=== PATIENT | female | born 1960 | race Caucasian/White ===

== ENCOUNTER 2019-08-27 13:15 | Observation (INO) | payer BC ==
[2019-08-27] MEDS ORDERED: LORAZEPAM INJ 2 MG/1 ML VIAL IV ONE ×2 (13:22→15:15)
[2019-08-27] MEDS ORDERED: NORMAL SALINE 1000 ML 1,000 ML IV ONE ×3 (13:24→13:25)
[2019-08-27 13:54] LABS: ABSOLUTE BASOPHILS # (AUTO) 0.1 10^3/uL (0.0-0.2); ABSOLUTE EOSINOPHILS # (AUTO) 0.1 10^3/uL (0.0-0.6); ABSOLUTE LYMPHOCYTES (AUTO) 1.5 10^3/uL (0.5-4.7); ABSOLUTE MONOCYTES (AUTO) 0.2 10^3/uL (0.1-1.4); ABSOLUTE NEUT (AUTO) 9.6 10^3/uL (1.7-8.2); EOSINOPHILS % (AUTO) 0.5 % (0-6); HEMATOCRIT 41.9 % (36.0-47.0); HEMOGLOBIN 14.6 g/dL (12.0-15.5); MEAN CORPUSCULAR HEMOGLOBIN 34.1 pg (27.0-33.4); MEAN CORPUSCULAR HGB CONC 34.9 g/dL (32.0-36.0); MEAN CORPUSCULAR VOLUME 98 fl (80-97); MONOCYTES % (AUTO) 2.2 % (3-13); PLATELET COUNT 305 10^3/uL (150-450); RED CELL DISTRIBUTION WIDTH 12.4 % (11.5-14.0); SEGMENTED NEUTROPHILS % (AUTO) 83.3 % (42-78); TOTAL CELLS COUNTED % (AUTO) 100 %; WHITE BLOOD COUNT 11.5 10^3/uL (4.0-10.5)
[2019-08-27 13:57] LABS: INTERNATIONAL RATION (INR) 0.88; PROTHROMBIN TIME 11.9 SEC (11.4-15.4)
--- NOTE | 2019-08-27 13:57 | ER Document Report ---
ED General - General Chief Complaint: Unresponsive Stated Complaint: UNRESPONSIVE Time Seen by Provider: 08/27/19 13:22 Primary Care Provider: DOMINICK EDMOND MD [Primary Care Provider] - Follow up as needed TRAVEL OUTSIDE OF THE [place] IN LAST 30 DAYS: No Past Medical History - Social History Smoking Status: Current Every Day Smoker Family History: Reviewed & Not Pertinent Physical Exam - Vital signs Vitals: Pulse Ox 92 08/27/19 13:23 - Notes Notes: Patient was brought in by paramedics for possible seizure. They report that when she they arrived on the scene arms were across her chest and rigid but she was moaning at the time. She was given 20 mg of Versed with no significant change. Was given additional 2 and half milligrams of Versed again with no significant change. Because of guarding they were concerned about a possible dystonic reaction he was given 50 mg of Benadryl IV. That point was noted that her O2 sats were 83% she placed on nasal cannula seemed to improve somewhat in her mental status but woke up completely. They never noticed any true tonic- clonic activity. Additional history from patient seen a neurologist in the past he felt was related to the pain medicines that she was on and to go off of those. Prior to that she had about 4 seizures her last seizure was in February and then once a day. He describes tonic activity upper extremities clenching of the teeth and her legs getting tonic. Is a postictal with these episodes. However she usually wakes up pretty quickly did not wake up today. She has not had any recent fevers or vomiting. No head injuries. She is on unknown type of medication for depression and fibromyalgia which may be Lyrica or Neurontin she does smoke and drink occasionally the neurologist did not place her on antiseizure medicines but felt it was related to the medicine she was on at the time Past medical history obtained from paramedics. History of seizures with no meds and hypothyroid Review of systems and social history unobtainable PHYSICIAN EXAM -vital signs are noted triage note and note from triage reviewed GENERAL: Well-appearing, well-nourished and in __no acute distress he is restless moving all 4 extremities but nonverbal____ HEAD: Atraumatic, normocephalic. EYES: Pupils equal round and reactive to light, extraocular movements intact, pupils are 4 mm sclera anicteric, conjunctiva are normal. Oculocephalic reflex is intact ENT: nares patent, oropharynx clear without exudates. Slightly dry mucous membranes. I do not Appreciate any lesions on the tongue NECK: supple without lymphadenopathy no step-off or meningeal signs LUNGS: Breath sounds clear to auscultation bilaterally and equal. No wheezes rales or rhonchi. HEART: Regular rate and rhythm without murmurs ABDOMEN: Soft, nontender, normoactive bowel sounds. EXTREMITIES: No deformity, no edema. NEUROLOGICAL: She is moving all 4 extremities spontaneously she is groaning PSYCH: Normal mood, normal affect. SKIN: Warm, Dry, normal turgor, no rashes or lesions noted. BACK-no step-off Differential diagnosis was dehydration abnormal electrolytes seizure with overdose Course - Re-evaluation Re-evalutation: 08/27/19 18:01 ED patient started to wake up and was given Ativan. Upon return from CT scan more agitated and was given 2 doses of ketamine with good sedation. She got also got 1 dose of Haldol. 2 IVs were started Horvath catheter was inserted and she was given IV fluids here. Lactate was obtained blood cultures were obtained he was started on broad-spectrum antibiotics with vancomycin and Zosyn. She has been followed closely from a neurological standpoint to start to wake up and less agitated and and I reevaluated the patient a few minutes ago she is alert and oriented x4 answering all questions appropriately with a nonfocal juvenal rological exam. Just reporting taking several aspirin tablets several times a day as well as Goody powders on a regular basis. Because of the history of seizures she was also given a gram of Keppra Medical decision making patient presents with what sounds like a seizure with a prolonged postictal state and will need admission for observation have consulted the hospitalist At this time there is no indication for admission. I have discussed the findings with patient/family with return precautions and follow-up recommendations. Verbal discharge instructions given at the bedside and opportunity for questions given. Medication warnings were given if indicated. Patient is in agreement with this plan and has verbalized understanding of return precautions and the need for primary care follow-up as directed.. - Vital Signs Vital signs: Temp Pulse Resp BP Pulse Ox 92 08/27/19 13:23 - Laboratory Result Diagrams: 08/27/19 13:20 08/27/19 16:45 Laboratory results interpreted by me: 08/27/19 08/27/19 08/27/19 13:20 13:20 13:20 WBC 11.5 H MCV 98 H MCH 34.1 H Towns % (Auto) 2.2 L Absolute Neuts (auto) 9.6 H Seg Neutrophils % 83.3 H Sodium Carbon Dioxide Glucose Lactic Acid 3.5 H Calcium AST Total Protein Albumin Urine Protein Urine Glucose (UA) Urine Ketones Urine Blood Urine Ascorbic Acid Acetaminophen < 10 L 08/27/19 08/27/19 13:45 16:45 WBC MCV MCH Towns % (Auto) Absolute Neuts (auto) Seg Neutrophils % Sodium 130.2 L Carbon Dioxide 21 L Glucose 71 L Lactic Acid Calcium 7.9 L AST 42 H Total Protein 6.0 L Albumin 3.4 L Urine Protein >=500 H Urine Glucose (UA) >=500 H Urine Ketones TRACE H Urine Blood SMALL H Urine Ascorbic Acid 40 H Acetaminophen - EKG Interpretation by Me Additional EKG results interpreted by me: 08/27/19 16:58 Initial EKG shows some baseline artifact some nonspecific ST wave changes with some questionable ST depression in both the inferior and lateral leads EKG shows sinus rhythm with normal axis QTC is prolonged at 0.47 no baseline artifact and the nonspecific changes have resolved Critical Care Note - Critical Care Note Total time excluding time spent on procedures (mins): 75 Comments: Patient is had serial exams multiple medical interventions multiple medications for sedation history taken from paramedics and family Discharge - Discharge Clinical Impression: Seizure, Psychomotor agitation Sepsis Qualifiers: Sepsis acute organ dysfunction status: with acute organ dysfunction Severe sepsis acute organ dysfunction type: unspecified Disposition: ADMITTED INPATIENT Admitting Provider: Lee (Hospitalist) Unit Admitted: Telemetry Referrals: DOMINICK EDMOND MD [Primary Care Provider] - Follow up as needed
[2019-08-27] MEDS ORDERED: KETAMINE HCL INJ 500 MG/10 ML VIAL IV ONE ×2 (13:59→14:13)
--- NOTE | 2019-08-27 14:04 | RADIOLOGY REPORT (SQ) ---
EXAM DESCRIPTION: CT HEAD WITHOUT COMPLETED DATE/TIME: 08/27/2019 1:53 pm REASON FOR STUDY: Altered mental status COMPARISON: None. TECHNIQUE: Axial images acquired through the brain without intravenous contrast. Images reviewed wi th bone, brain and subdural windows. Additional sagittal and coronal reconstructions were generated. Images stored on PACS. All CT scanners at this facility use dose modulation, iterative reconstruction, and/or weight based d osing when appropriate to reduce radiation dose to as low as reasonably achievable (ALARA). [facility]: Dose Right [facility]: CareDose [facility]: Dose Right [facility]: Teradose 4D [facility]: [place] RADIATION DOSE: CT Rad equipment meets quality standard of care and radiation dose reduction techniq ues were employed. CTDIvol: 24.8 mGy. DLP: 574 mGy-cm. mGy. LIMITATIONS: None. FINDINGS: VENTRICLES: Normal size and contour. CEREBRUM: No masses. No hemorrhage. No midline shift. No evidence for acute infarction. Normal gra y/white matter differentiation. No areas of low density in the white matter. CEREBELLUM: No masses. No hemorrhage. No alteration of density. No evidence for acute infarction. EXTRAAXIAL SPACES: No fluid collections. No masses. ORBITS AND GLOBE: No intra- or extraconal masses. Normal contour of globe without masses. CALVARIUM: No fracture. PARANASAL SINUSES: No fluid or mucosal thickening. SOFT TISSUES: No mass or hematoma. OTHER: No other significant finding. IMPRESSION: NORMAL BRAIN CT WITHOUT CONTRAST. EVIDENCE OF ACUTE STROKE: NO. COMMENT: Quality ID # [id number]: Final reports with documentation of one or more dose reduction techniques (e.g., Automated exposure control, adjustment of the mA and/or kV according to patient size, use of iterative reconstruction technique) TECHNICAL DOCUMENTATION: JOB ID: [id number] [employer]- All Rights Reserved Reading location - IP/workstation name: [email or web address]
[2019-08-27 14:10] LABS: APPEARANCE,URINE SLIGHTLY-CLOUDY; BILIRUBIN,URINE NEGATIVE (NEGATIVE); COLOR,URINE YELLOW; GLUCOSE, URINE >=500 mg/dL (NEGATIVE); KETONES,URINE TRACE mg/dL (NEGATIVE); LEUKOCYTE ESTERASE,URINE NEGATIVE (NEGATIVE); NITRITE,URINE NEGATIVE (NEGATIVE); PROTEIN,URINE >=500 mg/dL (NEGATIVE); URINE SPECIFIC GRAVITY 1.016; UROBILINOGEN,URINE NEGATIVE mg/dL (<2.0)
[2019-08-27 14:12] LABS: SALICYLATE 16.7 mg/dL (2.0-20.0)
[2019-08-27 14:17] LABS: ACETAMINOPHEN < 10 ug/mL (10-30)
[2019-08-27 14:20] LABS: URINE AMPHETAMINES SCREEN NEGATIVE; URINE BARBITURATES SCREEN NEGATIVE; URINE BENZODIAZEPINES SCREEN UNCONFIRMED POSITIVE; URINE COCAINE SCREEN NEGATIVE; URINE MARIJUANA (THC) SCREEN UNCONFIRMED POSITIVE; URINE METHADONE SCREEN NEGATIVE; URINE PHENCYCLIDINE SCREEN NEGATIVE
[2019-08-27] MEDS ORDERED: LEVETIRACETAM 1000 MG/NACL-ISO 1,000 MG/100 ML RTUPB IV ONE (14:32)
[2019-08-27 14:33] LABS: FREE T4 (FREE THYROXINE) 1.73 ng/dL (0.78-2.19)
[2019-08-27] MEDS ORDERED: VANCOMYCIN HCL INJ 1000 MG VIAL IV ONE (14:33)
[2019-08-27] MEDS ORDERED: PIPERACILLIN/TAZOBACTAM 4.5 GM VIAL IV ONE (14:33)
[2019-08-27] MEDS ORDERED: LORAZEPAM INJ 2 MG/1 ML VIAL ONE (14:37)
[2019-08-27 14:47] LABS: THYROID STIMULATING HORMONE 0.66 uIU/mL (0.47-4.68)
--- NOTE | 2019-08-27 15:22 | RADIOLOGY REPORT (SQ) ---
EXAM DESCRIPTION: CHEST SINGLE VIEW COMPLETED DATE/TIME: 08/27/2019 3:09 pm REASON FOR STUDY: Altered mental status COMPARISON: None. EXAM PARAMETERS: NUMBER OF VIEWS: One view. TECHNIQUE: Single frontal radiographic view of the chest acquired. RADIATION DOSE: NA LIMITATIONS: None. FINDINGS: LUNGS AND PLEURA: There is asymmetric left upper lobe airspace disease. This could repres ent asymmetric edema or pneumonia. No effusions or pneumothorax. MEDIASTINUM AND HILAR STRUCTURES: No masses. Contour normal. HEART AND VASCULAR STRUCTURES: Heart normal in size. Normal vasculature. BONES: No acute findings. HARDWARE: None in the chest. OTHER: No other significant finding. IMPRESSION: Asymmetric left upper lobe airspace disease either edema or pneumonia. TECHNICAL DOCUMENTATION: JOB ID: [id number] [employer]- All Rights Reserved Reading location - IP/workstation name: [email or web address]
[2019-08-27] MEDS ORDERED: HALOPERIDOL LACTATE INJ 5 MG/1 ML VIAL IV ONE ×2 (15:26→16:13)
[2019-08-27 16:24] LABS: VENOUS BLOOD BASE EXCESS -2.2 mmol/L; VENOUS BLOOD HCO3 23.7 mmol/L (20-32); VENOUS BLOOD PCO2 45.2 mmHg (35-63); VENOUS BLOOD PH 7.34 (7.30-7.42)
[2019-08-27 17:15] LABS: ALBUMIN 3.4 g/dL (3.5-5.0); ALKALINE PHOSPHATASE 72 U/L (38-126); ANION GAP 9 (5-19); ASPARTATE AMINO TRANSFERASE 42 U/L (14-36); BILIRUBIN,DIRECT 0.2 mg/dL (0.0-0.4); BILIRUBIN,TOTAL 0.5 mg/dL (0.2-1.3); BLOOD UREA NITROGEN 11 mg/dL (7-20); CALCIUM 7.9 mg/dL (8.4-10.2); CARBON DIOXIDE 21 mmol/L (22-30); CHLORIDE 100 mmol/L (98-107); GLUCOSE 71 mg/dL (75-110); POTASSIUM 4.3 mmol/L (3.6-5.0)
[2019-08-27 17:16] LABS: ALCOHOL < 10 mg/dL (NONE DETECTED)
--- NOTE | 2019-08-27 17:19 | EKG REPORT ---
SEVERITY:- ABNORMAL ECG - SINUS RHYTHM BORDERLINE RIGHT AXIS DEVIATION CONSIDER ANTEROSEPTAL INFARCT : Confirmed by: Piedad Goldberg MD 27-Aug-2019 17:18:01
--- NOTE | 2019-08-27 17:19 | EKG REPORT ---
SEVERITY:- ABNORMAL ECG - SINUS RHYTHM CONSIDER ANTEROSEPTAL INFARCT NONSPECIFIC REPOL ABNORMALITY, DIFFUSE LEADS : Confirmed by: Piedad Goldberg MD 27-Aug-2019 17:18:05
[2019-08-27] MEDS ORDERED: ACETAMINOPHEN 325 MG TABLET PO PRN (18:20)
[2019-08-27] MEDS ORDERED: LORAZEPAM INJ 2 MG/1 ML VIAL IV PRN (18:24)
--- NOTE | 2019-08-27 18:47 | PDOC H&P ---
History of Present Illness Admission Date/PCP: DOMINICK EDMOND MD Patient complains of: Unresponsiveness History of Present Illness: JULY GRAHAM is a 59 year old female with a history of fibromyalgia, prior seizures, who was brought into the hospital by EMS accompanied by her after being noted to have a look like a seizure. Reported history from ER pro vider is that patient was reported to his suddenly become unresponsive while at home and her limbs were noted to be flailing uncontrollably. At the time patient was not responding to any questions. subsequently called EMS who noted patient was having what was reported as tonic activity of her limbs. EMS also noted that patient was unresponsive with her teeth clenched and gave her Versed on the field. In the ER, patient was reported to have been postictal for the past few hours with significant confusion and agitation which required additional dose of Ativan as well as ketamine 20 mg then 40 mg and subsequently Haldol to help control her agitation. Patient is currently more awake and appears to be out of the postictal phase and is conversational and calm. She admits to having 2-3 prior episodes in the past year and states that this episode started after her son . States she has been evaluated by a neurologist and has had multiple head scans, MRIs as well as EEGs done and nothing was found. She states that her neurologist did not put her on any antiseizure prophylaxis. Patient admits to not driving and states that she knows that this is unsafe. The last thing patient recalls was being at home prior to the episode. She denies any drug use besides marijuana smoking. Past Medical History Past Medical History: Fibromyalgia, hypothyroidism, seizure Past Surgical History Past Surgical History: Reports: None Social History Information Source: Patient Lives with: Spouse/Significant other Smoking Status: Current Every Day Smoker Frequency of Alcohol Use: Rare Hx Recreational Drug Use: Yes Drugs: Marijuana Hx Prescription Drug Abuse: No - Advance Directive Resuscitation Status: Full Code Family History Family History: Other - Heart disease, denies history of seizure in the family Parental Family History Reviewed: Yes Children Family History Reviewed: NA Sibling(s) Family History Reviewed.: Yes Medication/Allergy Home Medications: Alprazolam [Xanax 0.5 mg Tablet] 0.5 mg PO Q12HP PRN 08/27/19 Levothyroxine Sodium [Synthroid 0.112 mg Tablet] 112 mcg PO Q6AM 08/27/19 Tramadol HCl [Ultram 50 mg Tablet] 50 mg PO Q12HP PRN 08/27/19 Review of Systems Constitutional: ABSENT: chills, fatigue Eyes: ABSENT: visual disturbances Cardiovascular: ABSENT: chest pain Respiratory: ABSENT: cough, dyspnea, sputum Gastrointestinal: ABSENT: abdominal pain, nausea, vomiting Musculoskeletal: ABSENT: back pain Integumentary: ABSENT: diaphoresis Neurological: ABSENT: confusion Psychiatric: PRESENT: depression. ABSENT: anxiety, hallucinations, homidical i deation, suicidal ideation Physical Exam Vital Signs: Temp Pulse Resp BP Pulse Ox 32 H 107/65 95 08/27/19 17:31 08/27/19 18:02 08/27/19 17:39 Intake & Output 08/26/19 08/27/19 08/28/19 06:59 06:59 06:59 Intake Total 1999 Balance 1999 Weight 86.455 kg General appearance: PRESENT: no acute distress, cooperative Head exam: PRESENT: atraumatic Eye exam: PRESENT: EOMI, PERRLA. ABSENT: nystagmus, scleral icterus Mouth exam: ABSENT: laceration Neck exam: ABSENT: JVD Respiratory exam: PRESENT: clear to auscultation kirill, symmetrical, unlabored. ABSENT: tachypnea, wheezes Cardiovascular exam: PRESENT: RRR, +S1, +S2. ABSENT: tachycardia Vascular exam: ABSENT: pallor GI/Abdominal exam: PRESENT: normal bowel sounds, soft. ABSENT: rebound, rigid, tenderness Extremities exam: ABSENT: pedal edema Musculoskeletal exam: PRESENT: full ROM Neurological exam: PRESENT: alert, awake, oriented to person, oriented to place, oriented to time, oriented to situation, CN II-XII grossly intact. ABSENT: ataxia, motor sensory deficit, aphasic Psychiatric exam: ABSENT: agitated, anxious Focused psych exam: ABSENT: catatonic Results Laboratory Results: 08/27/19 13:20 08/27/19 16:45 08/27/19 08/27/19 08/27/19 13:20 13:20 13:20 WBC 11.5 H RBC 4.30 Hgb 14.6 Hct 41.9 MCV 98 H MCH 34.1 H MCHC 34.9 RDW 12.4 Plt Count 305 Seg Neutrophils % 83.3 H Carbonic Acid HCO3/H2CO3 Ratio ABG pH ABG pCO2 ABG pO2 ABG HCO3 ABG O2 Saturation ABG Base Excess VBG pH VBG pCO2 VBG HCO3 VBG Base Excess FiO2 Sodium Cancelled Potassium Cancelled Chloride Cancelled Carbon Dioxide Cancelled Anion Gap Cancelled BUN Cancelled Creatinine Cancelled Est GFR ( Amer) Cancelled Est GFR (Non-Af Amer) Cancelled Glucose Cancelled Lactic Acid 3.5 H Calcium Cancelled Total Bilirubin Cancelled AST Cancelled Alkaline Phosphatase Cancelled Total Protein Cancelled Albumin Cancelled TSH Free T4 Urine Color Urine Appearance Urine pH Ur Specific [place] Urine Protein Urine Glucose (UA) Urine Ketones Urine Blood Urine Nitrite Ur Leukocyte Esterase Urine WBC (Auto) Urine RBC (Auto) 08/27/19 08/27/19 08/27/19 13:20 13:20 13:20 WBC RBC Hgb Hct MCV MCH MCHC RDW Plt Count Seg Neutrophils % Carbonic Acid Cancelled HCO3/H2CO3 Ratio Cancelled ABG pH Cancelled ABG pCO2 Cancelled ABG pO2 Cancelled ABG HCO3 Cancelled ABG O2 Saturation Cancelled ABG Base Excess Cancelled VBG pH VBG pCO2 VBG HCO3 VBG Base Excess FiO2 Cancelled Sodium Potassium Chloride Carbon Dioxide Anion Gap BUN Creatinine Est GFR ( Amer) Est GFR (Non-Af Amer) Glucose Lactic Acid Calcium Total Bilirubin AST Alkaline Phosphatase Total Protein Albumin TSH 0.66 Cancelled Free T4 1.73 Urine Color Urine Appearance Urine pH Ur Specific [place] Urine Protein Urine Glucose (UA) Urine Ketones Urine Blood Urine Nitrite Ur Leukocyte Esterase Urine WBC (Auto) Urine RBC (Auto) 08/27/19 08/27/19 08/27/19 13:45 16:10 16:10 WBC RBC Hgb Hct MCV MCH MCHC RDW Plt Count Seg Neutrophils % Carbonic Acid HCO3/H2CO3 Ratio ABG pH ABG pCO2 ABG pO2 ABG HCO3 ABG O2 Saturation ABG Base Excess VBG pH 7.34 VBG pCO2 45.2 VBG HCO3 23.7 VBG Base Excess -2.2 FiO2 Sodium Cancelled Potassium Cancelled Chloride Cancelled Carbon Dioxide Cancelled Anion Gap Cancelled BUN Cancelled Creatinine Cancelled Est GFR ( Amer) Cancelled Est GFR (Non-Af Amer) Cancelled Glucose Cancelled Lactic Acid Calcium Cancelled Total Bilirubin Cancelled AST Cancelled Alkaline Phosphatase Cancelled Total Protein Cancelled Albumin Cancelled TSH Free T4 Urine Color YELLOW Urine Appearance SLIGHTLY-CLOUDY Urine pH 5.0 Ur Specific [place] 1.016 Urine Protein >=500 H Urine Glucose (UA) >=500 H Urine Ketones TRACE H Urine Blood SMALL H Urine Nitrite NEGATIVE Ur Leukocyte Esterase NEGATIVE Urine WBC (Auto) 23 Urine RBC (Auto) 9 08/27/19 08/27/19 16:23 16:45 WBC RBC Hgb Hct MCV MCH MCHC RDW Plt Count Seg Neutrophils % Carbonic Acid HCO3/H2CO3 Ratio ABG pH ABG pCO2 ABG pO2 ABG HCO3 ABG O2 Saturation ABG Base Excess VBG pH VBG pCO2 VBG HCO3 VBG Base Excess FiO2 Sodium 130.2 L Potassium 4.3 Chloride 100 Carbon Dioxide 21 L Anion Gap 9 BUN 11 Creatinine 0.65 Est GFR ( Amer) > 60 Est GFR (Non-Af Amer) Glucose 71 L Lactic Acid 1.9 Calcium 7.9 L Total Bilirubin 0.5 AST 42 H Alkaline Phosphatase 72 Total Protein 6.0 L Albumin 3.4 L TSH Free T4 Urine Color Urine Appearance Urine pH Ur Specific [place] Urine Protein Urine Glucose (UA) Urine Ketones Urine Blood Urine Nitrite Ur Leukocyte Esterase Urine WBC (Auto) Urine RBC (Auto) Impressions: Chest X-Ray 08/27/19 13:24 IMPRESSION: Asymmetric left upper lobe airspace disease either edema or pneumonia. Head CT 08/27/19 13:26 IMPRESSION: NORMAL BRAIN CT WITHOUT CONTRAST. EVIDENCE OF ACUTE STROKE: NO. Assessment and Plan - Diagnosis (1) Seizure Is this a current diagnosis for this admission?: Yes Plan: Seizure-like activity witnessed by and EMS with postictal state noted by ER staff Given that this is patient's 2nd-3rd seizure-like episode in the past 1 year, I will place patient on Keppra. She has already received a dose in the ER. However, given patient's complaint of seizures onset being since her son , I have some suspicion of possible underlying conversion disorder/psychogenic etiology. However this diagnosis cannot be confirmed in the absence of co ntinuous EEG monitoring which we do not have here on the floors. Ultimately she would benefit from follow-up with both a neurologist and a psychiatrist upon discharge. Check EEG Check CK Admit for observation and neurochecks Ativan prn for sustained recurrent seizure (2) Lactic acidosis Is this a current diagnosis for this admission?: Yes Plan: Initially mildly elevated but resolved with fluid administration. Questionable opacity on chest x-ray. However patient does not clinically appear to be having a pneumonia as she denies any significant cough fever and only has very mild leukocytosis which could be a stress response from seizure activity. Patient is not septic. Already received doses of antibiotics but hold off on further doses for now. (3) Hypothyroidism Qualifiers: Hypothyroidism type: unspecified Qualified Code(s): E03.9 - Hypothyroidism, unspecified Is this a current diagnosis for this admission?: Yes Plan: Continue Synthroid. Thyroid function test within normal limits. - Time Time Spent with patient: 35 or more minutes
[2019-08-27] MEDS ORDERED: NORMAL SALINE 1000 ML 500 ML IV ONE (18:58)
[2019-08-28 05:10] LABS: HEMATOCRIT 36.8 % (36.0-47.0); HEMOGLOBIN 12.9 g/dL (12.0-15.5); MEAN CORPUSCULAR HEMOGLOBIN 33.7 pg (27.0-33.4); MEAN CORPUSCULAR VOLUME 96 fl (80-97); PLATELET COUNT 211 10^3/uL (150-450); RED BLOOD COUNT 3.83 10^6/uL (3.72-5.28); RED CELL DISTRIBUTION WIDTH 12.3 % (11.5-14.0); WHITE BLOOD COUNT 8.9 10^3/uL (4.0-10.5)
[2019-08-28 05:35] LABS: ALBUMIN 3.6 g/dL (3.5-5.0); ALKALINE PHOSPHATASE 77 U/L (38-126); ANION GAP 9 (5-19); ASPARTATE AMINO TRANSFERASE 60 U/L (14-36); BILIRUBIN,DIRECT 0.2 mg/dL (0.0-0.4); BILIRUBIN,TOTAL 0.6 mg/dL (0.2-1.3); BLOOD UREA NITROGEN 8 mg/dL (7-20); CALCIUM 9.1 mg/dL (8.4-10.2); CARBON DIOXIDE 21 mmol/L (22-30); CHLORIDE 109 mmol/L (98-107); CREATINE KINASE 873 U/L (30-135); GLUCOSE 85 mg/dL (75-110); PHOSPHORUS 3.4 mg/dL (2.5-4.5); POTASSIUM 3.8 mmol/L (3.6-5.0); SALICYLATE 1.7 mg/dL (2.0-20.0); TOTAL PROTEIN 6.2 g/dL (6.3-8.2)
[2019-08-28] MEDS ORDERED: LEVOTHYROXINE SODIUM 0.112 MG TABLET PO SCH (06:00)
[2019-08-28] MEDS ORDERED: LEVETIRACETAM 500 MG TABLET PO SCH (10:00)
--- NOTE | 2019-08-28 14:52 | NEURO WORKBENCH EEG REPORT ---
EEG Report Patient: Kassi Perez ID: [id number] Referring Doctor: Harshal Onwe Date: 08/28/2019 Reason for study: Evaluate Epileptiform activity Medications: Keppra, Synthroid, Ativan History: This is a 59 year old female with a history of a first seizure after her sons in 1996, second seizure in February 1999, and last seizure on August 27, 2019. The patient reported recent stressor. This EEG was requested for evaluation of epileptiform activity. EEG Interpretation: This EEG was recorded during wakefulness and stage I sleep. The awake EEG is characterized by a well organized background with a reactive posterior dominant rhythm (PDR) of approximately 9 Hz. The remainder of the background consisted of diffuse low amplitude beta activity and occasional bi-temporal theta activity (left more common than right). There was a slight amplitude asymmetry at times, with lower amplitudes noted in the right temporal region. Photic stimulation resulted in no significant photic driving, and there was no epileptiform activity elicited with photic stimulation. Hyperventilation resulted in the appearance of minimal diffuse theta theta activity (normal for age) and no epileptiform activity was elicited. Stage I sleep was achieved and characterized by slow rolling eye movements, slowing of the background rhythm and increased theta activity. Stage II sleep was not achieved. There were no epileptiform abnormalities (no sharp waves and no spikes). There were no seizures. The EKG showed a regular rhythm with typically 60 beats per minute. EEG Impression: This EEG is mildly abnormal for age, with mildly increased theta activity in the temporal regions and lower amplitudes in the right temporal region at times. These findings are non-specific for etiology. Evaluation with imaging for any structural abnormalities could be considered if clinically indicated. There was no epileptiform activity or seizures. A single normal routine EEG does not rule out the possibility of epilepsy. If there is high clinical suspicion for epilepsy, then additional EEG evaluation should be considered with a sleep- deprived EEG or more prolonged EEG monitoring. INTERPRETING NEUROLOGIST: Jovon Glass MD Board certified by the [place] [employer] in Neurology, Clinical Neurophysiology, and Sleep Medicine [facility]ITAL[facility]lad[facility]
--- NOTE | 2019-08-28 15:20 | PDOC DISCHARGE SUMMARY ---
Impression - Admit/DC Date/PCP Admission Date/Primary Care Provider: 08/27/19 18:22 DOMINICK EDMOND MD Discharge Date: 08/28/19 - Discharge Diagnosis (1) Seizure Is this a current diagnosis for this admission?: Yes (2) Lactic acidosis Is this a current diagnosis for this admission?: Yes (3) Hypothyroidism Is this a current diagnosis for this admission?: Yes (4) Elevated CK Is this a current diagnosis for this admission?: Yes (5) Depression with anxiety Is this a current diagnosis for this admission?: Yes - Assessment Summary: Patient was admitted after having an episode of witnessed seizure activity witnessed by patient's as well as EMS to be tonic-clonic in nature. In the emergency department she was noted to be postictal with confusion and unreasonable agitation. She received several sedative medication to help with the agitation while in the ER. Head CT scan showed no evidence of brain bleed or any other structural abnormality to explain the seizure activity. Patient was subsequently admitted and underwent neuro checks every 4 hours. She has been loaded with Keppra in the ER and Keppra was continued given she has had over 2 unprovoked seizures and this is her second seizure within the past year. Patient is being discharged on Keppra. She has had no recurrent seizure activity while she was here. On further discussion with patient's today, he acknowledges that patient has been having seizures for the past 6 years even prior to her son's . I have recommended to patient to ensure that she follows up with her neurologist for further evaluation and care for seizures. I have also recommended to patient to see a psychiatrist or psychologist for further management of her depression and anxiety which was triggered by son's . Patient did have mild lactic acidosis secondary to muscle contraction from the seizure which is resolved at this time and mild CK elevation for which p.o. hydration is encouraged. Patient is in stable condition and ready for discharge. - Additional Information Resuscitation Status: Full Code Discharge Diet: As Tolerated Discharge Activity: Activity As Tolerated Referrals: DOMINICK EDMOND MD [Primary Care Provider] - (f/u within 14 days) Prescriptions: Levetiracetam [Keppra 500 mg Tablet] 1,000 mg PO Q12 30 Days tablet Home Medications: Aspirin [Aspirin 325 mg Tablet] 325 mg PO DAILYP PRN 08/27/19 Levothyroxine Sodium 112 mcg PO Q6AM 08/27/19 Levetiracetam [Keppra 500 mg Tablet] 1,000 mg PO Q12 30 Days tablet 08/28/19 History of Present Illiness History of Present Illness: JULY GRAHAM is a 59 year old female with a history of fibromyalgia, prior seizures, who was brought into the hospital by EMS accompanied by her after being noted to have a look like a seizure. Reported history from ER provider is that patient was reported to his suddenly become unresponsive while at home and her limbs were noted to be flailing uncontrollably. At the time patient was not responding to any questions. subsequently called EMS who noted patient was having what was reported as tonic activity of her limbs. EMS also noted that patient was unresponsive with her teeth clenched and gave her Versed on the field. In the ER, patient was reported to have been postictal for the past few hours with significant confusion and agitation which required additional dose of Ativan as well as ketamine 20 mg then 40 mg and subsequently Haldol to help control her agitation. Patient is currently more awake and appears to be out of the postictal phase and is conversational and calm. She admits to having 2-3 prior episodes in the past year and states that this episode started after her son . States she has been evaluated by a neurologist and has had multiple head scans, MRIs as well as EEGs done and nothing was found. She states that her neurologist did not put her on any antiseizure prophylaxis. Patient admits to not driving and states that she knows that this is unsafe. The last thing patient recalls was being at home prior to the episode. She denies any drug use besides marijuana smoking. Physical Exam Vital Signs: Temp Pulse Resp BP Pulse Ox 98.4 F 76 12 108/64 98 08/28/19 08:23 08/28/19 08:23 08/28/19 08:23 08/28/19 08:23 08/28/19 09:43 Intake & Output 08/27/19 08/28/19 08/29/19 06:59 06:59 06:59 Intake Total 2500 720 Output Total 2850 Balance -350 720 Weight 67.8 kg General appearance: PRESENT: no acute distress, cooperative Neck exam: ABSENT: JVD Respiratory exam: PRESENT: clear to auscultation kirill Neurological exam: PRESENT: alert, awake, oriented to person, oriented to place, oriented to time, oriented to situation Psychiatric exam: ABSENT: agitated, anxious Results Laboratory Results: WBC 8.9 10^3/uL (4.0-10.5) 08/28/19 04:23 RBC 3.83 10^6/uL (3.72-5.28) 08/28/19 04:23 Hgb 12.9 g/dL (12.0-15.5) 08/28/19 04:23 Hct 36.8 % (36.0-47.0) 08/28/19 04:23 MCV 96 fl (80-97) 08/28/19 04:23 MCH 33.7 pg (27.0-33.4) H 08/28/19 04:23 MCHC 35.0 g/dL (32.0-36.0) 08/28/19 04:23 RDW 12.3 % (11.5-14.0) 08/28/19 04:23 Plt Count 211 10^3/uL (150-450) 08/28/19 04:23 Lymph % (Auto) 13.0 % (13-45) 08/27/19 13:20 [place] % (Auto) 2.2 % (3-13) L 08/27/19 13:20 Eos % (Auto) 0.5 % (0-6) 08/27/19 13:20 Baso % (Auto) 1.0 % (0-2) 08/27/19 13:20 Absolute Neuts (auto) 9.6 10^3/uL (1.7-8.2) H 08/27/19 13:20 Absolute Lymphs (auto) 1.5 10^3/uL (0.5-4.7) 08/27/19 13:20 Absolute Monos (auto) 0.2 10^3/uL (0.1-1.4) 08/27/19 13:20 Absolute Eos (auto) 0.1 10^3/uL (0.0-0.6) 08/27/19 13:20 Absolute Basos (auto) 0.1 10^3/uL (0.0-0.2) 08/27/19 13:20 Seg Neutrophils % 83.3 % (42-78) H 08/27/19 13:20 PT 11.9 SEC (11.4-15.4) 08/27/19 13:20 INR 0.88 08/27/19 13:20 Carbonic Acid Cancelled 08/27/19 13:20 HCO3/H2CO3 Ratio Cancelled 08/27/19 13:20 ABG pH Cancelled 08/27/19 13:20 ABG pCO2 Cancelled 08/27/19 13:20 ABG pO2 Cancelled 08/27/19 13:20 ABG HCO3 Cancelled 08/27/19 13:20 ABG Total CO2 Cancelled 08/27/19 13:20 ABG O2 Saturation Cancelled 08/27/19 13:20 ABG Base Excess Cancelled 08/27/19 13:20 VBG pH 7.34 (7.30-7.42) 08/27/19 16:10 VBG pCO2 45.2 mmHg (35-63) 08/27/19 16:10 VBG HCO3 23.7 mmol/L (20-32) 08/27/19 16:10 VBG Base Excess -2.2 mmol/L 08/27/19 16:10 FiO2 Cancelled 08/27/19 13:20 Sodium 139.0 mmol/L (137-145) 08/28/19 04:23 Potassium 3.8 mmol/L (3.6-5.0) 08/28/19 04:23 Chloride 109 mmol/L (98-107) H 08/28/19 04:23 Carbon Dioxide 21 mmol/L (22-30) L 08/28/19 04:23 Anion Gap 9 (5-19) 08/28/19 04:23 BUN 8 mg/dL (7-20) 08/28/19 04:23 Creatinine 0.65 mg/dL (0.52-1.25) 08/28/19 04:23 Est GFR ( Amer) > 60 (>60) 08/28/19 04:23 Est GFR (Non-Af Amer) Cancelled 08/27/19 16:10 Est GFR (MDRD) Non-Af > 60 (>60) 08/28/19 04:23 Glucose 85 mg/dL (75-110) 08/28/19 04:23 Lactic Acid 1.2 mmol/L (0.7-2.1) 08/27/19 20:21 Calcium 9.1 mg/dL (8.4-10.2) 08/28/19 04:23 Phosphorus 3.4 mg/dL (2.5-4.5) 08/28/19 04:23 Magnesium 1.8 mg/dL (1.6-2.3) 08/28/19 04:23 Total Bilirubin 0.6 mg/dL (0.2-1.3) 08/28/19 04:23 Direct Bilirubin 0.2 mg/dL (0.0-0.4) 08/28/19 04:23 Neonat Total Bilirubin Not Reportable 08/28/19 04:23 Neonat Direct Bilirubin Not Reportable 08/28/19 04:23 Neonat Indirect Bili Not Reportable 08/28/19 04:23 AST 60 U/L (14-36) H 08/28/19 04:23 ALT 24 U/L (<35) 08/28/19 04:23 Alkaline Phosphatase 77 U/L (38-126) 08/28/19 04:23 Creatine Kinase 873 U/L (30-135) H 08/28/19 04:23 Total Protein 6.2 g/dL (6.3-8.2) L 08/28/19 04:23 Albumin 3.6 g/dL (3.5-5.0) 08/28/19 04:23 EGFR Cancelled 08/27/19 16:10 TSH 0.66 uIU/mL (0.47-4.68) 08/27/19 13:20 TSH Cancelled 08/27/19 13:20 Free T4 1.73 ng/dL (0.78-2.19) 08/27/19 13:20 Urine Color YELLOW 08/27/19 13:45 Urine Appearance SLIGHTLY-CLOUDY 08/27/19 13:45 Urine pH 5.0 (5.0-9.0) 08/27/19 13:45 Ur Specific [place] 1.016 08/27/19 13:45 Urine Protein >=500 mg/dL (NEGATIVE) H 08/27/19 13:45 Urine Glucose (UA) >=500 mg/dL (NEGATIVE) H 08/27/19 13:45 Urine Ketones TRACE mg/dL (NEGATIVE) H 08/27/19 13:45 Urine Blood SMALL (NEGATIVE) H 08/27/19 13:45 Urine Nitrite NEGATIVE (NEGATIVE) 08/27/19 13:45 Urine Nitrite (Reflex) Cancelled 08/27/19 13:45 Urine Bilirubin NEGATIVE (NEGATIVE) 08/27/19 13:45 Urine Urobilinogen NEGATIVE mg/dL (<2.0) 08/27/19 13:45 Ur Leukocyte Esterase NEGATIVE (NEGATIVE) 08/27/19 13:45 Leukocyte Esterase Rfl Cancelled 08/27/19 13:45 Urine WBC (Auto) 23 /HPF 08/27/19 13:45 Urine RBC (Auto) 9 /HPF 08/27/19 13:45 U Hyaline Cast (Auto) 10 /LPF 08/27/19 13:45 Urine WBC (Reflex) Cancelled 08/27/19 13:45 Squamous Epi Cells Auto 1 /HPF 08/27/19 13:45 Urine Mucus (Auto) OCC /LPF 08/27/19 13:45 Urine Ascorbic Acid 40 (NEGATIVE) H 08/27/19 13:45 Salicylates 1.7 mg/dL (2.0-20.0) L 08/28/19 04:23 Urine Opiates Screen NEGATIVE 08/27/19 13:45 Urine Methadone Screen NEGATIVE 08/27/19 13:45 Acetaminophen < 10 ug/mL (10-30) L 08/27/19 13:20 Ur Barbiturates Screen NEGATIVE 08/27/19 13:45 Ur Phencyclidine Scrn NEGATIVE 08/27/19 13:45 Ur Amphetamines Screen NEGATIVE 08/27/19 13:45 U Benzodiazepines Scrn UNCONFIRMED POSITIVE 08/27/19 13:45 Urine Cocaine Screen NEGATIVE 08/27/19 13:45 U Marijuana (THC) Screen UNCONFIRMED POSITIVE 08/27/19 13:45 Serum Alcohol < 10 mg/dL (NONE DETECTED) 08/27/19 16:45 Impressions: Chest X-Ray 08/27/19 13:24 IMPRESSION: Asymmetric left upper lobe airspace disease either edema or pneumonia. Head CT 08/27/19 13:26 IMPRESSION: NORMAL BRAIN CT WITHOUT CONTRAST. EVIDENCE OF ACUTE STROKE: NO. Plan Time Spent: Less than 30 Minutes Stroke Is this a Stroke Patient?: No Acute Heart Failure - Is this a Heart Failure Patient?: No
[2019-08-28 15:40] VITALS: BP 112/59
== END 2019-08-28 16:00 | disposition home or self-care (01) ==
LOC: ER 13:15 → EH 18:22 → INTOOBSV 18:22 → 4N 20:30
PROVIDERS: ADMIT Internal Medicine; ATTEND Internal Medicine
DX: R56.9 Unspecified convulsions (principal); E87.2 Acidosis; R74.8 Abnormal levels of other serum enzymes; F41.8 Other specified anxiety disorders; F17.200 Nicotine dependence, unspecified, uncomplicated; R41.0 Disorientation, unspecified; R45.1 Restlessness and agitation; E03.9 Hypothyroidism, unspecified; D72.829 Elevated white blood cell count, unspecified; M79.7 Fibromyalgia; Z63.4 Disappearance and death of family member; Z79.899 Other long term (current) drug therapy; Z79.82 Long term (current) use of aspirin; Z82.49 Family history of ischemic heart disease and other diseases of the circulatory system
CPT/HCPCS: 95819 ×2; 93005; 96376; 99291; 99292; 96361; 51702; 96375; 96365; 96367; 36415 ×2; 87040; 87086; 84439; 80307 ×5; 82550 ×2; 83605; 83735; 84100; 84443; 85025; 85027; 85610; 87077; 87088; 80053 ×2; 81001; 87186; 82803; 87150 ×26; 71045; 70450; 93010; 36600; 97116; 97161; G0378 ×3; J1630; J3490 ×2; J2060; J7030; J3370; J1953; J2543

== ENCOUNTER 2019-10-27 21:42 | Emergency (ER) | payer BC ==
[2019-10-27] MEDS ORDERED: ONDANSETRON HCL INJ/PF 4 MG/2 ML SDV IV ONE (23:21)
[2019-10-27 23:48] LABS: URINE AMPHETAMINES SCREEN NEGATIVE; URINE BARBITURATES SCREEN NEGATIVE; URINE BENZODIAZEPINES SCREEN NEGATIVE; URINE COCAINE SCREEN NEGATIVE; URINE METHADONE SCREEN NEGATIVE; URINE PHENCYCLIDINE SCREEN NEGATIVE
[2019-10-27 23:49] LABS: URINE MARIJUANA (THC) SCREEN UNCONFIRMED POSITIVE
[2019-10-27 23:55] LABS: ALBUMIN 4.4 g/dL (3.5-5.0); ALKALINE PHOSPHATASE 97 U/L (38-126); ANION GAP 11 (5-19); ASPARTATE AMINO TRANSFERASE 29 U/L (14-36); BILIRUBIN,DIRECT 0.3 mg/dL (0.0-0.4); BILIRUBIN,TOTAL 0.5 mg/dL (0.2-1.3); BLOOD UREA NITROGEN 10 mg/dL (7-20); CALCIUM 9.1 mg/dL (8.4-10.2); CARBON DIOXIDE 23 mmol/L (22-30); CHLORIDE 93 mmol/L (98-107); GLUCOSE 116 mg/dL (75-110); POTASSIUM 4.2 mmol/L (3.6-5.0); TOTAL PROTEIN 7.3 g/dL (6.3-8.2)
[2019-10-28 00:02] LABS: APPEARANCE,URINE CLEAR; BILIRUBIN,URINE NEGATIVE (NEGATIVE); COLOR,URINE STRAW; GLUCOSE, URINE NEGATIVE (NEGATIVE); KETONES,URINE TRACE mg/dL (NEGATIVE); LEUKOCYTE ESTERASE,URINE NEGATIVE (NEGATIVE); NITRITE,URINE NEGATIVE (NEGATIVE); PROTEIN,URINE 30 mg/dL (NEGATIVE); URINE SPECIFIC GRAVITY 1.016; UROBILINOGEN,URINE NEGATIVE mg/dL (<2.0)
[2019-10-28 00:06] LABS: ABSOLUTE BASOPHILS # (AUTO) 0.1 10^3/uL (0.0-0.2); ABSOLUTE LYMPHOCYTES (AUTO) 1.4 10^3/uL (0.5-4.7); ABSOLUTE MONOCYTES (AUTO) 0.5 10^3/uL (0.1-1.4); ABSOLUTE NEUT (AUTO) 11.9 10^3/uL (1.7-8.2); BASOPHILS % (AUTO) 0.6 % (0-2); EOSINOPHILS % (AUTO) 0.1 % (0-6); HEMOGLOBIN 13.8 g/dL (12.0-15.5); LYMPHOCYTES % (AUTO) 10.1 % (13-45); MEAN CORPUSCULAR HGB CONC 35.4 g/dL (32.0-36.0); MEAN CORPUSCULAR VOLUME 93 fl (80-97); MONOCYTES % (AUTO) 3.7 % (3-13); PLATELET COUNT 246 10^3/uL (150-450); RED BLOOD COUNT 4.18 10^6/uL (3.72-5.28); RED CELL DISTRIBUTION WIDTH 12.3 % (11.5-14.0); SEGMENTED NEUTROPHILS % (AUTO) 85.5 % (42-78); TOTAL CELLS COUNTED % (AUTO) 100 %; WHITE BLOOD COUNT 13.9 10^3/uL (4.0-10.5)
[2019-10-28] MEDS ORDERED: KETOROLAC TROMETHAMINE INJ/PF 30 MG/1 ML SDV IV ONE (01:14)
[2019-10-28] MEDS ORDERED: NORMAL SALINE 1000 ML 1,000 ML IV ONE (01:15)
[2019-10-28] MEDS ORDERED: PROMETHAZINE HCL INJ 25 MG/1 ML VIAL IV ONE (01:15)
--- NOTE | 2019-10-28 01:49 | ER Document Report ---
Entered by JULEE MAURICIO SCRIBE 10/28/19 0108 Acting as scribe for:JEREMY KEENE IV, MD ED Seizure - General Chief Complaint: Seizure Stated Complaint: SEIZURE Time Seen by Provider: 10/28/19 01:04 Primary Care Provider: DOMINICK EDMOND MD [Primary Care Provider] - Follow up as needed Mode of Arrival: Medic Information source: Patient, Relative, Emergency Med Personnel Notes: This 59 year old female patient with a history of seizures brought in by EMS presents to the ED today with complaints of x2 seizures that occurred prior to arrival. EMS reports that the family witnessed x2 seizures with the first one being an absence seizure that lasted approximately x10 minutes which led into a tonic-clonic/generalized seizure which lasted approximately x2 minutes. Patient denies incontinence or biting her tongue. EMS states that the patient was postictal upon their arrival. EMS reports patient history of both absence and grand mal seizures in which she has x2/year; however, EMS states that the seizures have been increasing with the last seizure in August. Patient has a prescription for 100 mg Lamotrigine BID and states that she is compliant with her medication. Patient reports feeling nauseous and "achy" now and for the past few days. Patient states that she drinks about x4-5 bottles of water everyday as well as decaffeinated tea and coffee. Patient sees Dr. Tierney in [place] for neurology. Patient denies any fevers, chills, cough, or cold. - Related Data Allergies/Adverse Reactions: No Known Allergies Allergy (Unverified 08/27/19 18:42) Past Medical History - General Information source: Patient, Emergency Med Personnel, [facility] Records - Social History Smoking Status: Never Smoker Cigarette use (# per day): No Chew tobacco use (# tins/day): No Smoking Education Provided: No Frequency of alcohol use: None Drug Abuse: None Family History: Reviewed & Not Pertinent, CAD, Other - Denies history of seizure in the family Patient has suicidal ideation: No Patient has homicidal ideation: No Neurological Medical History: Reports: Hx Seizures Review of Systems - Review of Systems Constitutional: See HPI. denies: Chills, Fever EENT: See HPI, Other - Tongue biting Cardiovascular: No symptoms reported Respiratory: See HPI. denies: Cough, Other - Cold Gastrointestinal: See HPI, Nausea Genitourinary: See HPI. denies: Incontinence Female Genitourinary: No symptoms reported Musculoskeletal: No symptoms reported Skin: No symptoms reported Hematologic/Lymphatic: No symptoms reported Neurological/Psychological: See HPI, Seizure -: Yes All other systems reviewed and negative Physical Exam - Vital signs Vitals: Temp Resp Pulse Ox 97.9 F 20 96 10/27/19 21:47 10/27/19 21:47 10/27/19 21:47 Interpretation: Normal - General General appearance: Alert - HEENT Head: Normocephalic, Atraumatic Eyes: Normal Pupils: PERRL Mouth/Lips: Other - No evidence of oral trauma. - Respiratory Respiratory status: No respiratory distress Chest status: Nontender Breath sounds: Normal Chest palpation: Normal - Cardiovascular Rhythm: Regular Heart sounds: Normal auscultation Murmur: No Friction rub: No Gallop: None auscultated - Abdominal Inspection: Normal Distension: No distension Bowel sounds: Normal Tenderness: Nontender - Abdomen soft Organomegaly: No organomegaly - Back Back: Normal, Nontender - Extremities General upper extremity: Normal inspection General lower extremity: Normal inspection - Neurological Neuro grossly intact: Yes Orientation: AAOx4 - Psychological Associated symptoms: Normal affect, Normal mood - Skin Skin Temperature: Warm Skin Moisture: Dry Skin Color: Normal Course - Re-evaluation Re-evalutation: 10/28/19 02:57 Patient states she is feeling better at this time. Emergency signs and symptoms, reasons to return to the emergency department discussed with patient and patient's significant other. Results of ED MSE discussed with patient patient's significant other. All questions were answered prior to discharge. - Vital Signs Vital signs: Temp Pulse Resp BP Pulse Ox 97.9 F 17 148/59 H 100 10/27/19 21:47 10/28/19 02:02 10/28/19 02:02 10/28/19 02:02 - Laboratory Result Diagrams: 10/27/19 23:30 10/27/19 23:30 Laboratory results interpreted by me: 10/27/19 10/27/19 10/27/19 23:17 23:30 23:30 WBC 13.9 H Lymph % (Auto) 10.1 L Absolute Neuts (auto) 11.9 H Seg Neutrophils % 85.5 H Sodium 127.2 L Chloride 93 L Creatinine 0.48 L Glucose 116 H Urine Protein 30 H Urine Ketones TRACE H Urine Blood MODERATE H Urine Ascorbic Acid 40 H - EKG Interpretation by Me Additional EKG results interpreted by me: 10/28/19 01:49 EKG obtained on 10/27/2019 at 2157 hrs. was interpreted by this MD. Findings: Sinus rhythm, rate 76, normal axis, P waves proceed QRS complexes, QRS complexes appear narrow, there are no obviously visible patterns of ST segment elevation or depression present to suggest acute myocardial ischemia or infarction. Impression normal sinus rhythm with nonspecific ST segments. Discharge - Discharge Clinical Impression: Seizure disorder Condition: Good Disposition: HOME, SELF-CARE Additional Instructions: Return to the Emergency Department without delay if any worse. HOME CARE INSTRUCTIONS & INFORMATION: Thank you for choosing us for your [facility] needs. We hope you're satisfied with the care you received. After you leave, you must properly care for your problem and, at the same time, observe its progress. Any condition can change. Some illnesses can change rapidly over hours or days. If your condition worsens, return to the Emergency Department or see your physician promptly. ABOUT YOUR X-RAYS AND EKG'S: If you had an EKG or X-rays taken, they have been read by the Emergency Physician. The X-rays and EKG's will also be read by a Radiologist or Purse Seining Hand within 24 hours. If discrepancies are noted, you will be notified by telephone. Please be certain the ED has a correct telephone number & address where you can be reached. Also, realize that some fractures or abnormalities do not show up on initial X-rays. If your symptoms continue, see your physician. ABOUT YOUR LABORATORY TEST: If you had laboratory tests, the results have been reviewed by the Emergency Physician. Some test results (for example cultures) may not be available for several days. You will be contacted if any test result shows you need additional treatment. Please be certain the ED has a correct telephone number and address where you can be reached. ABOUT YOUR MEDICATIONS: You will receive instructions on how to take your medicine on the prescription label you receive. Additional information may be provided by the Pharmacy. If you have questions afterwards, call the ED for clarification or further instructions. Some prescribed medications may cause drowsiness. Do not perform tasks such as driving a car or operating machinery without consulting your Pharmacist. If you feel you need a refill of pain medication, your condition will need re-evaluation. Please do not call for a refill of any medication. ABOUT YOUR SIGNATURE: Signature of this document acknowledges to followin. Understanding that you received emergency treatment and that you may be released before al medical problems are known or treated. Please be certain the ED has a correct phone number & address where you can be reached. 2. Acknowledgement that you will arrange for follow-up care as recommended. 3. Authorization for the Emergency Physician to provide information to your follow-up Physician in order to maximize your care. AT ANY TIME, IF YOUR SYMPTOMS CHANGE SIGNIFICANTLY OR WORSEN OR YOU DEVELOP NEW SYMPTOMS, RETURN TO THE EMERGENCY DEPARTMENT IMMEDIATELY FOR RE-EVALUATION. OUR GOAL IS TO PROVIDE EXCELLENT MEDICAL CARE! WE HOPE THAT WE HAVE MET YOUR EXPECTATIONS DURING YOUR EMERGENCY DEPARTMENT VISIT AND THAT YOU FEEL YOU HAVE RECEIVED EXCELLENT CARE! Seizure, Known Epileptic You have had a seizure. Seizures may "break through" in an epileptic due to stress of infection or injury, a change in blood chemistry, or drug and alcohol use. Another common cause is failure to take medication as prescribed. Your doctor has evaluated your situation for the likely cause of this seizure. It is important that you follow his advice concerning any medication changes and follow-up care. Further testing of anti-seizure medication levels in your blood may be necessary. If you have a pile driver engineer's license, it's important that you DO NOT DRIVE until given permission by your physician. This seizure must be reported to the pile driver engineer's license bureau. Call the doctor or return if seizures recur, or if new or unusual symptoms arise -- such as severe headache, confusion, excessive sleepiness, local weakness or numbness, neck stiffness, or fever. Prescriptions: Promethazine HCl [Phenergan 25 mg Tablet] 1 tab PO Q6H PRN #15 tablet PRN Reason: Referrals: DOMINICK EDMOND MD [Primary Care Provider] - Follow up as needed I personally performed the services described in the documentation, reviewed and edited the documentation which was dictated to the scribe in my presence, and it accurately records my words and actions.
[2019-10-28 03:15] VITALS: BP 141/67
--- NOTE | 2019-10-29 00:34 | EKG REPORT ---
SEVERITY:- ABNORMAL ECG - SINUS RHYTHM PROBABLE ANTEROSEPTAL INFARCT, OLD : Confirmed by: Olivia Dow 29-Oct-2019 00:33:52
== END 2019-10-28 03:15 | disposition home or self-care (01) ==
LOC: ER 21:42
DX: G40.909 Epilepsy, unspecified, not intractable, without status epilepticus (principal); Z79.899 Other long term (current) drug therapy; R11.0 Nausea; R52 Pain, unspecified
CPT/HCPCS: 93005; 99285; 96361; 96374; 96375; 36415; 85025; 80053; 81001; 80307; 93010; J1885; J2550; J2405; J7030